=== PATIENT | female | born 1940 | race Caucasian/White ===

== ENCOUNTER 2023-09-06 22:08 | Emergency (ER) | payer MEDICARE, OTHER, SELFPAY ==
[2023-09-06 22:11] VITALS: BP 186/97
--- NOTE | 2023-09-06 23:05 | ED.GENMED ---
History of Present Illness
General
Chief Complaint: Blood Pressure Problem
Source: patient
Exam Limitations: none
Time Seen by Provider: 09/06/23 23:03
Travel History
Have you had any contact with someone who has COVID-19?: No
Do you have any symptoms of coronavirus? Fever > 100 degrees, chills, cough, shortness of breath, sore throat, loss of taste or smell, muscle aches, or headache?: No
History of Present Illness
History of Present Illness:
83-year-old female presents complaining of pulsing sensation to the left hindu region onset tonight. She checked her blood pressure and it was elevated. She denies vision change dizziness chest pain or shortness of breath. She recently had blood
work which was normal. She is treated for hypertension with amlodipine.
Past History
Past History
ED Past Medical History: Cancer, HTN and Other (Hypertension, restless leg, insomnia)
ED Past Surgical History: Other (melanoma removal)
Social History
Tobacco: Non-smoker
Alcohol: Occasional
Personal: Single
Living: alone
Family History
Family History: Other (Breast cancer her mother, coronary disease in her father)
Phy Exam
Physical Exam
Physical Exam:
General: Well-appearing female no acute respiratory distress
HEENT: Normocephalic atraumatic pupils equal round reactive to light negative Tinel's of the left temporal artery
: Regular rate and rhythm no murmurs
Lungs: Clear no wheeze or rales
Neurologic: Alert and oriented finger-nose intact conversing appropriately normal gait extremities: No cyanosis or edema
Course
Orders/Labs/Results
Orders:
Orders
09/06/23 23:21
CT Head W/o Iv Contrast Urgent
Comment:
Reason For Exam: headache, elevated BP
Vital Signs
Initial and Last Documented VS:
Initial Vital Signs
Temp Pulse Resp BP Pulse Ox
97.8 F 90 22 186/97 100
09/06/23 22:11 09/06/23 22:11 09/06/23 22:11 09/06/23 22:11 09/06/23 22:11
Last Documented Vital Signs
Temp Pulse Resp BP Pulse Ox
97.8 F 72 15 156/93 97
09/06/23 22:11 09/06/23 23:10 09/06/23 23:10 09/06/23 23:10 09/06/23 23:10
MDM/Problems Addressed
Differential Diagnosis Includes:
Headache in the setting of elevated blood pressure. Most recent blood pressure 156/93. Still with residual headache. No neurologic deficit. CT of head pending
*Critical Care Note
Total Time (30-74mins, 75-104mins- exclusive of procedures): Not Applicable
Update Note
Update Note:
CT head negative for acute findings. Patient reassured. Blood pressure improved. Stable for discharge home with follow-up
Recheck blood pressure 133/68
ED Attending Note
-
Portions of this chart may have been created with voice recognition software.� Occasional wrong word or��sound alike� substitutions may have occurred due to the inherent limitations of voice recognition software.
Discharge Plan
Departure
Patient Disposition: Home (Routine Discharge)
Date of Disposition: 09/07/23
Time of Disposition: 00:36
Patient with high blood pressure during this ER visit?: No
Discharge Problem:
Elevated blood pressure reading
Instructions: High Blood Pressure (DC)
Prescriptions:
No Action
docosahexaenoic acid-epa 1 CAP capsule
1 cap PO DAILY
atorvastatin 20 MG tablet
20 mg PO DAILY@1700
metformin 500 MG tablet extended release 24 hr
500 mg PO DAILY@1700
cholecalciferol (vitamin D3) [Vitamin D3] 1,000 UNIT capsule
1,000 unit PO DAILY
pramipexole 1 mg tablet
1.5 mg PO DAILY@1700
pramipexole 1 mg tablet
1 mg PO HS
B Complex Tablet Extended Release
1 tab PO DAILY
clonazepam 0.5 mg tablet
0.25 mg PO HS
Patient Comments:
09/06/2023: LAST FILLED 04/22/23, 90 TABS FOR 90 DAYS FROM [id number]
gabapentin 400 mg capsule
400 mg PO HS
amlodipine 5 mg tablet
5 mg PO DAILY@1700
docusate sodium 100 mg Capsule
100 mg PO BID PRN (Reason: CONSTIPATION)
escitalopram oxalate 10 mg tablet
10 mg PO DAILY@1700
Referrals:
Todd Piper MD [Family Provider] -
Activity Restrictions/Additional Instructions:
Continue current medications. Please return here for worsening symptoms otherwise follow-up with your family doctor
Interventions
Interventions:
*Risk Screen - Suicide Last Done: 09/06/23 22:11
*General Assessment Last Done: 09/06/23 23:10
*Neglect/Abuse Screening Last Done: 09/06/23 22:11
ED- Fall Risk Assessment Last Done: 09/06/23 23:10
*ED COVID-19 Vaccine History Last Done: 09/06/23 23:22
ED- Cardiac Assessment Last Done: 09/06/23 23:10
ED- Neurological Assessment Last Done: 09/06/23 23:10
ED- Pulmonary Assessment Last Done: 09/06/23 23:10
Discharge Date and Time
Print Language: BRITISH
[2023-09-06 23:10] VITALS: BP 156/93
[2023-09-06 23:30] VITALS: BP 148/71
[2023-09-07 00:31] VITALS: BP 133/68
== END 2023-09-07 00:48 | disposition home or self-care (01) ==
LOC: EMR 22:08
PROVIDERS: EMERGENCY PHYSICIAN Student in an Organized Health Care Education/Training Program; FAMILY PHYSICIAN Internal Medicine Geriatric Medicine
DX: R03.0 Elevated blood-pressure reading, without diagnosis of hypertension (principal); I10 Essential (primary) hypertension; G25.81 Restless legs syndrome; G47.00 Insomnia, unspecified
CPT/HCPCS: 99284; 70450

== ENCOUNTER → 2024-01-16 07:27 | Outpatient (REF) | payer MEDICARE, OTHER, SELFPAY ==
[2024-01-16 09:56] LABS: Blood Urea Nitrogen 22 mg/dl (7-17); Calcium 9.3 mg/dl (8.4-10.2); Carbon Dioxide 26 mmol/L (22-30); Chloride 101 mmol/L (98-107); Glucose 101 mg/dl (70-99); Potassium 4.3 mmol/L (3.5-5.1); Sodium 138 mmol/L (135-145); eGFR > 60.00
== END ==
LOC: REG 07:27
PROVIDERS: ATTENDING PHYSICIAN Internal Medicine Geriatric Medicine; REFERRING PHYSICIAN Psychiatry & Neurology Neurology
DX: I10 Essential (primary) hypertension (principal)
CPT/HCPCS: 36415; 80048; 82565

== ENCOUNTER → 2024-07-27 06:52 | Outpatient (REF) | payer MEDICARE, OTHER, SELFPAY ==
[2024-07-27 07:25] LABS: % Basophils 0.5 % (0-2); % Eosinophils 1.5 % (0-6); % Immature Granulocytes 0.3 % (0-0.5); % Lymphocytes 39.4 % (20.5-51.1); % Monocytes 8.9 % (1.7-9.3); % Neutrophils 49.4 % (42.2-75.2); Absolute Eosinophils 0.1 10^3/uL (0-0.7); Absolute Lymphocytes 2.3 10^3/uL (1.2-3.4); Absolute Monocytes 0.5 10^3/uL (0.1-0.6); Absolute Neutrophils 2.9 10^3/uL (1.4-6.5); Hematocrit 36.5 % (37.0-47.0); Hemoglobin 12.5 g/dL (12.0-16.0); Mean Corp Hgb Conc. 34.2 g/dL (33.0-37.0); Mean Corpuscular Hgb 30.8 pg (27.0-31.0); Mean Corpuscular Volume 89.9 fL (81.0-99.0); Mean Platelet Volume 9.4 fL (7.4-10.4); Nucleated Red Blood Cells % 0 %; Platelet Count 195 10^3/uL (130-400); Red Blood Cell Count 4.06 10^6/uL (4.20-5.40); Red Cell Dist. Width 13.4 % (11.5-14.5); White Blood Cell Count 5.9 10^3/uL (4.8-10.8)
[2024-07-27 08:00] LABS: ALT (SGPT) 30 U/L (0-35); AST (SGOT) 32 U/L (14-36); Alkaline Phosphatase 76 U/L (38-126); Blood Urea Nitrogen 28 mg/dl (7-17); Calcium 9.3 mg/dl (8.4-10.2); Carbon Dioxide 31 mmol/L (22-30); Chloride 100 mmol/L (98-107); Glucose 98 mg/dl (70-99); HDL Cholesterol 79 mg/dl; LDL Cholesterol, Calculated 59 mg/dl; Potassium 4.3 mmol/L (3.5-5.1); Sodium 138 mmol/L (135-145); Total Bilirubin 0.4 mg/dl (0.2-1.3); Total Cholesterol 148 mg/dl (50-199); Total Protein 6.4 g/dl (6.3-8.2); Triglyceride 50 mg/dl (10-149); Very Low Density Lipoprotein 10 mg/dl (0-30); eGFR > 60.00
[2024-07-27 08:21] LABS: TSH Reflex To Free T4 2.74 uIU/ml (0.47-4.68)
[2024-07-27 09:58] LABS: Vitamin D, 25-OH*** 75.2 ng/mL (30-80)
[2024-07-27 10:33] LABS: Glycohemoglobin (HgbA1c) 5.8 % (4.0-5.6)
[2024-07-27 13:19] LABS: Urine Albumin Negative (Neg - Trace); Urine Bilirubin Negative (Negative); Urine Character Clear (Clear); Urine Color Yellow; Urine Glucose Negative (Negative); Urine Ketone Negative (Negative); Urine Leukocyte 2+ (Negative); Urine Nitrite Negative (Negative); Urine Occult Blood 2+ (Negative); Urine Urobilinogen Negative (Neg - 1+)
[2024-07-27 14:27] LABS: Urine Squamous Cell 16-20 /LPF (Few)
[2024-07-27 14:28] LABS: Urine Bacteria Few (Negative); Urine White Cell 16-20 /HPF (0-5)
== END ==
LOC: REG 06:52
PROVIDERS: ATTENDING PHYSICIAN Internal Medicine Geriatric Medicine; OTHER PHYSICIAN Internal Medicine
DX: E78.00 Pure hypercholesterolemia, unspecified (principal); R73.03 Prediabetes; R32 Unspecified urinary incontinence; E55.9 Vitamin D deficiency, unspecified
CPT/HCPCS: 36415; 80053; 80061; 81003; 81015; 82306; 82565; 83036; 84443; 85025

== ENCOUNTER → 2024-11-22 07:17 | Outpatient (REF) | payer MEDICARE, OTHER, SELFPAY ==
[2024-11-22 10:10] LABS: Blood Urea Nitrogen 21 mg/dl (7-17); Calcium 9.2 mg/dl (8.4-10.2); Carbon Dioxide 30 mmol/L (22-30); Chloride 101 mmol/L (98-107); Glucose 94 mg/dl (70-99); Potassium 4.2 mmol/L (3.5-5.1); Sodium 135 mmol/L (135-145); eGFR > 60.00
== END ==
LOC: REG 07:17
PROVIDERS: ATTENDING PHYSICIAN Urology
DX: R31.29 Other microscopic hematuria (principal)
CPT/HCPCS: 36415; 80048

== ENCOUNTER → 2024-11-23 15:11 | Outpatient (REF) | payer MEDICARE, OTHER, SELFPAY | LOC: RAD 15:11 | PROVIDERS: ATTENDING PHYSICIAN Urology; FAMILY PHYSICIAN Internal Medicine Geriatric Medicine | DX: R31.29 Other microscopic hematuria (principal) | CPT/HCPCS: 74178; Q9967 ==

== ENCOUNTER → 2025-01-08 14:51 | Outpatient (REF) | payer MEDICARE, OTHER, SELFPAY | LOC: RAD 14:51 | PROVIDERS: ATTENDING PHYSICIAN Internal Medicine Geriatric Medicine | DX: R22.42 Localized swelling, mass and lump, left lower limb (principal) | CPT/HCPCS: 93971 ==

== ENCOUNTER → 2025-02-01 07:09 | Outpatient (REF) | payer MEDICARE, OTHER, SELFPAY ==
[2025-02-01 08:39] LABS: ALT (SGPT) 26 U/L (0-35); AST (SGOT) 28 U/L (14-36); Albumin 4.2 g/dl (3.5-5.0); Alkaline Phosphatase 101 U/L (38-126); Blood Urea Nitrogen 15 mg/dl (7-17); Calcium 9.4 mg/dl (8.4-10.2); Carbon Dioxide 31 mmol/L (22-30); Chloride 100 mmol/L (98-107); Glucose 99 mg/dl (70-99); HDL Cholesterol 75 mg/dl; LDL Cholesterol, Calculated 47 mg/dl; Potassium 4.8 mmol/L (3.5-5.1); Sodium 136 mmol/L (135-145); Total Protein 7.0 g/dl (6.3-8.2); Very Low Density Lipoprotein 10 mg/dl (0-30); eGFR > 60.00
[2025-02-01 09:28] LABS: Glycohemoglobin (HgbA1c) 5.8 % (4.0-5.6)
== END ==
LOC: REG 07:09
PROVIDERS: ATTENDING PHYSICIAN Internal Medicine Geriatric Medicine
DX: E78.00 Pure hypercholesterolemia, unspecified (principal); R73.03 Prediabetes
CPT/HCPCS: 36415; 80053; 80061; 83036

== ENCOUNTER → 2025-02-08 11:38 | Outpatient (REF) | payer MEDICARE, OTHER, SELFPAY | LOC: RAD 11:38 | PROVIDERS: ATTENDING PHYSICIAN Internal Medicine Geriatric Medicine | DX: M25.562 Pain in left knee (principal) | CPT/HCPCS: 73564 ==